=== PATIENT | male | born 2000 | race Caucasian/White ===

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

== ENCOUNTER 2018-05-21 18:56 | Emergency (ER) | payer OTHER ==
[2018-05-21 19:08] VITALS: BP 144/94
--- NOTE | 2018-05-21 19:17 | UC ---
Abdominal Pain Male HPI - HPI Summary HPI Summary: 18-year-old male comes to clinic with right lower quadrant abdominal pain. This started 2 days ago. He is nauseous he does not feel like eating. No fever. Bowels have been normal. Urinating makes the pain feel better. Movement and pressing on it makes the pain worse. No prior surgeries. No trauma. The pain does not radiate. Now the pain is moderate to severe. When it started was mild. - History of Current Complaint Chief Complaint: UCAbdominalPain Stated Complaint: SEVERE ABDOMINAL PAIN Time Seen by Provider: 05/21/18 19:05 Pain Intensity: 9 - Allergies/Home Medications Allergies/Adverse Reactions: Allergies Allergy/AdvReac Type Severity Reaction Status Date / Time No Known Allergies Allergy Verified 05/21/18 19:02 Home Medications: Home Medications NK [No Home Medications Reported] 05/21/18 [History Confirmed 05/21/18] PMH/Surg Hx/FS Hx/Imm Hx Previously Healthy: Yes - Surgical History Surgical History: None - Family History Known Family History: Positive: None Family History: Pt denies any FMHX - Social History Alcohol Use: Occasionally Substance Use Type: None Smoking Status (MU): Never Smoked Tobacco - Immunization History Vaccination Up to Date: Yes Review of Systems Constitutional: Negative Skin: Negative Eyes: Negative ENT: Negative Cardiovascular: Negative Gastrointestinal: Abdominal Pain, Nausea Genitourinary: Other - Urinating decreases the pain Motor: Negative Neurovascular: Negative Musculoskeletal: Negative Neurological: Negative Psychological: Negative Is Patient Immunocompromised?: No All Other Systems Reviewed And Are Negative: Yes Physical Exam Triage Information Reviewed: Yes Appearance: Pain Distress - Mild to moderate pain distress Vital Signs: Initial Vital Signs Temp 98.5 F 05/21/18 19:03 Pulse 88 05/21/18 19:03 Resp 17 05/21/18 19:03 BP 144/94 05/21/18 19:03 Pulse Ox 100 05/21/18 19:03 Vital Signs Reviewed: Yes ENT Exam: Normal Neck exam: Normal Neck: Positive: Supple Respiratory: Positive: Lungs clear, Normal breath sounds, No respiratory distress Cardiovascular: Positive: RRR Abdomen Description: Positive: Guarding - RLQ TENDERNESS TO PALPATION, Other: - POSITIVE HEEL STRIKE AND OBTURATOR SIGN Bowel Sounds: Positive: Hypoactive Musculoskeletal Exam: Normal Neurological Exam: Normal Psychological Exam: Normal Skin Exam: Normal Abd Pain Male Course/Dx - Course Course Of Treatment: I recommended the patient go directly to the emergency department. He wished to go by private vehicle. I discussed this with the [facility] emergency department. - Differential Dx/Clinical Impression Provider Diagnoses: RLQ ABDOMINAL PAIN Discharge - Sign-Out/Discharge Documenting (check all that apply): Patient Departure All imaging exams completed and their final reports reviewed: No Studies - Discharge Plan Condition: Stable Disposition: HOME-RECOMMEND TO ED Patient Education Materials: Acute Abdominal Pain (ED) Referrals: No Primary Care Phys,NOPCP [Primary Care Provider] - Additional Instructions: GO DIRECTLY TO THE EMERGENCY DEPARTMENT FOR FURTHER EVALUATION. - Billing Disposition and Condition Condition: STABLE Disposition: Home-Recommend to ED - Attestation Statements Document Initiated by Graciela: No
== END 2018-05-21 19:22 | disposition home health service (06) ==
LOC: UCCORT 18:56
DX: R10.31 Right lower quadrant pain (principal)
CPT/HCPCS: 99212; G0463

== ENCOUNTER 2018-09-07 17:11 | Emergency (ER) | payer OTHER ==
[2018-09-07 17:33] VITALS: BP 138/84
--- NOTE | 2018-09-07 17:39 | UC ---
Hand/Wrist HPI - HPI Summary HPI Summary: The patient is a 18-year-old male that comes here for evaluation of her right index finger laceration that occurred on the on sharp and edge of a knife that he was cleaning. He is right handed. The laceration is not bleeding. He assumes his tetanus shot is up-to-date as he is in college. - History Of Current Complaint Chief Complaint: UCLaceration Stated Complaint: RIGHT HAND POINTER FINGER LAC Time Seen by Provider: 09/07/18 17:25 Hx Obtained From: Patient Onset/Duration: Sudden Onset, Lasting Minutes Severity Initially: Mild Severity Currently: None Pain Intensity: 0 Pain Scale Used: 0-10 Numeric Character Of Pain: Dull Aggravating Factor(s): Other - nothing Alleviating Factor(s): Nothing Associated Signs And Symptoms: Positive: Negative Related History: Dominant Hand Right - Allergies/Home Medications Allergies/Adverse Reactions: Allergies Allergy/AdvReac Type Severity Reaction Status Date / Time No Known Allergies Allergy Verified 09/07/18 17:33 PMH/Surg Hx/FS Hx/Imm Hx Previously Healthy: Yes - Surgical History Surgical History: None - Family History Known Family History: Negative: Cardiac Disease, Hypertension, Diabetes Family History: Pt denies any FMHX - Social History Alcohol Use: Rare Substance Use Type: None Smoking Status (MU): Never Smoked Tobacco - Immunization History Most Recent Tetanus Shot: 2016 Vaccination Up to Date: Yes Review of Systems All Other Systems Reviewed And Are Negative: Yes Constitutional: Positive: Negative Skin: Positive: Negative Eyes: Positive: Negative ENT: Positive: Negative Respiratory: Positive: Negative Cardiovascular: Positive: Negative Gastrointestinal: Positive: Negative Genitourinary: Positive: Negative Motor: Positive: Negative Neurovascular: Positive: Negative Musculoskeletal: Positive: Negative Neurological: Positive: Negative Psychological: Positive: Negative Is Patient Immunocompromised?: No Physical Exam Triage Information Reviewed: Yes Appearance: No Pain Distress, Well-Nourished, Ill-Appearing Vital Signs: Initial Vital Signs Temp 97.3 F 09/07/18 17:27 Pulse 86 09/07/18 17:27 Resp 16 09/07/18 17:27 BP 138/84 09/07/18 17:27 Pulse Ox 97 09/07/18 17:27 Vital Signs Reviewed: Yes Eyes: Positive: Conjunctiva Clear ENT: Positive: Hearing grossly normal. Negative: Nasal congestion, Nasal drainage, Trismus, Muffled voice, Hoarse voice Neck: Positive: Supple, Nontender Respiratory: Positive: Lungs clear, Normal breath sounds, No respiratory distress Cardiovascular: Positive: RRR, No Murmur Musculoskeletal: Positive: ROM Intact, No Edema Neurological: Positive: Alert Psychological Exam: Normal Skin Exam: Other - see image Images Hands: 1 - 1cm long, <1mm wide,<1mm deep Hand/Wrist Course/Dx - Course Course Of Treatment: wound cleaned and dressed, no need for sutures/steristrips or glue - Differential Dx/Diagnosis Provider Diagnosis: Laceration of right index finger Discharge - Sign-Out/Discharge Documenting (check all that apply): Patient Departure All imaging exams completed and their final reports reviewed: No Studies - Discharge Plan Condition: Stable Disposition: HOME Patient Education Materials: Laceration Without Closure (ED) Referrals: No Primary Care Phys,NOPCP [Primary Care Provider] - Additional Instructions: gently clean twice daily with soap and water gently dry apply a thin film of antibiotic ointment ( I like polysproin or aquaphor healing ointment) bandaid for a few days call for any questions return for any problems - Billing Disposition and Condition Condition: STABLE Disposition: Home
== END 2018-09-07 17:55 | disposition home or self-care (01) ==
LOC: UCCORT 17:11
DX: S61.210A Laceration without foreign body of right index finger without damage to nail, initial encounter (principal); W26.0XXA Contact with knife, initial encounter; Y93.89 Activity, other specified; Y92.9 Unspecified place or not applicable
CPT/HCPCS: 99212; G0463

== ENCOUNTER 2019-01-21 16:33 | Emergency (ER) | payer OTHER ==
[2019-01-21 16:55] VITALS: BP 135/78
[2019-01-21] MEDS ORDERED: Lidocaine 1%* 5 ML VIAL INJ ONE (17:13)
[2019-01-21] MEDS ORDERED: cefTRIAXone VIAL(*) 250 MG VIAL IM ONE (17:13)
[2019-01-21] MEDS ORDERED: Azithromycin TAB* 250 MG PO ONE (17:13)
--- NOTE | 2019-01-21 17:21 | UC ---
Complaint Male HPI - HPI Summary HPI Summary: 18-year-old male comes in with a chief complaint of 2 days of burning with urination and urethral itching and irritation. Patient's had chlamydia in the past knee feels like it's of the same symptoms. Patient reports he's with just 1 partner. No fevers or chills no abdominal pain. No lesions or general ulcerations. No complaint of any testicular pain. - History of Current Complaint Chief Complaint: UCGU Stated Complaint: PERSONAL Time Seen by Provider: 01/21/19 16:48 Pain Intensity: 0 - Allergies/Home Medications Allergies/Adverse Reactions: Allergies Allergy/AdvReac Type Severity Reaction Status Date / Time No Known Allergies Allergy Verified 01/21/19 16:55 PMH/Surg Hx/FS Hx/Imm Hx Previously Healthy: Yes - Surgical History Surgical History: None - Family History Known Family History: Positive: None Negative: Cardiac Disease, Hypertension, Diabetes Family History: Pt denies any FMHX - Social History Alcohol Use: Occasionally Substance Use Type: None Smoking Status (MU): Never Smoked Tobacco - Immunization History Most Recent Tetanus Shot: 2015 Vaccination Up to Date: Yes Review of Systems All Other Systems Reviewed And Are Negative: Yes Constitutional: Positive: Negative Skin: Positive: Negative Eyes: Positive: Negative ENT: Positive: Negative Respiratory: Positive: Negative Cardiovascular: Positive: Negative Gastrointestinal: Positive: Negative Genitourinary: Positive: Dysuria, Vaginal/Penile Burning, Vaginal/Penile Itching Motor: Positive: Negative Neurovascular: Positive: Negative Musculoskeletal: Positive: Negative Neurological: Positive: Negative Psychological: Positive: Negative Is Patient Immunocompromised?: No Physical Exam Triage Information Reviewed: Yes Appearance: Well-Appearing, No Pain Distress, Well-Nourished Vital Signs: Initial Vital Signs Temp 98.4 F 01/21/19 16:47 Pulse 70 01/21/19 16:47 Resp 16 01/21/19 16:47 BP 135/78 01/21/19 16:47 Pulse Ox 100 01/21/19 16:47 Vital Signs Reviewed: Yes Eye Exam: Normal Eyes: Positive: Conjunctiva Clear Neck: Positive: Supple Respiratory: Positive: Lungs clear, Normal breath sounds, No respiratory distress Cardiovascular: Positive: RRR Male Genital Exam: Positive: Normal Genitalia. Negative: Epididymal Tenderness , Inguinal Tenderness, Lesions, Scrotum Tenderness (R), Scrotum Tenderness (L), Testicular Tenderness (R), Testicular Tenderness (L), Urethral Discharge Musculoskeletal Exam: Normal Musculoskeletal: Positive: Strength Intact, ROM Intact Neurological Exam: Normal Neurological: Positive: Alert, Muscle Tone Normal Psychological Exam: Normal Psychological: Positive: Age Appropriate Behavior Skin Exam: Normal Complaint Male Course/Dx - Course Course Of Treatment: Patient treated with azithromycin 1 g and Rocephin 250 mg IM in clinic. The gonorrhea chlamydia and urine culture results are pending. Further treatment based on results. - Differential Dx/Diagnosis Provider Diagnosis: Urethritis Discharge - Sign-Out/Discharge Documenting (check all that apply): Patient Departure All imaging exams completed and their final reports reviewed: No Studies - Discharge Plan Condition: Stable Disposition: HOME Patient Education Materials: Nonspecific Urethritis in Men (ED) Referrals: Ana Marrero MD [Primary Care Provider] - Additional Instructions: FOLLOW UP WITH YOUR DOCTOR IF NOT COMPLETELY IMPROVED. YOUR LAB RESULTS WILL BE COMPLETE IN THE NEXT 2-3 DAYS. CALL HERE IN 3 DAYS FOR FINAL RESULTS. GET RECHECKED SOONER IF YOUR CONDITION WORSENS OR ANY QUESTIONS OR CONCERNS. - Billing Disposition and Condition Condition: STABLE Disposition: Home
[2019-01-21] MEDS ORDERED: Lidocaine 1% MPF* 2 ML VIAL INJ ONE (17:36)
[2019-01-23 12:49] LABS: Neisseria gonorrhoeae (GC) RNA Negative (Negative)
== END 2019-01-21 18:16 | disposition home or self-care (01) ==
LOC: UCCORT 16:33
DX: N34.2 Other urethritis (principal)
CPT/HCPCS: 81003; 87086; 87491; 87591; 96372; 99212; A9270-GY; G0463; J0696